=== PATIENT | female | born 1975 | race Caucasian/White ===

== ENCOUNTER 2025-04-25 08:49 | Inpatient (IN) | payer BC ==
[~2025-04-25] VITALS: Ht 167.6 cm; Wt 81.7 kg
[2025-04-25 08:57] VITALS: O2SAT 99
[2025-04-25 09:57] LABS: BASOPHILS % 0.5 % (0.0-2.0); EOSINOPHILS % 0.4 % (0.0-5.0); HEMATOCRIT. 28.9 % (36.0-48.0); HEMOGLOBIN. 9.6 g/dL (12.0-16.0); LYMPHOCYTES % 15.4 % (20.0-50.0); MEAN PLATELET VOLUME 9.1 fl (7.4-10.4); MONOCYTES % 7.5 % (2.0-8.0); NEUTROPHILS % 76.2 % (40.0-76.0); PLATELET 296 x1000/uL (130-400); RED BLOOD CELL COUNT 3.24 mill/uL (4.2-5.4); RED CELL DISTRIBUTION WIDTH 12.8 % (11.6-14.6)
[2025-04-25 10:15] LABS: INR 1.1
[2025-04-25 10:17] LABS: CREATININE 0.8 mg/dL (0.6-1.0); TROPONIN I HIGH SENSITIVITY < 4 ng/L (3.0-34); UREA NITROGEN BLOOD 17 mg/dL (9-23)
[2025-04-25 10:19] LABS: ASPARTATE AMINOTRANSFERASE 15 IU/L (<34); BILIRUBIN DIRECT 0.2 mg/dL (<=3.0); BILIRUBIN TOTAL 0.5 mg/dL (0.1-1.0); PROTEIN TOTAL 7.5 g/dL (6.0-8.3)
[2025-04-25] MEDS: IOHEXOL-350 50 ML BOTTLE ONE (15:18)
[2025-04-25] MEDS ORDERED: HEPARIN 25,000 UNITS in DEXT 5% WATER 245 ML IV SCH (16:00)
[2025-04-25] MEDS: HEPARIN 5000 UNITS/ML VIAL IV ONE (16:50)
[2025-04-25] MEDS: HEPARIN 25,000 UNITS PREMIX 250 ML IV SCH (17:34)
[2025-04-25] MEDS ORDERED: HEPARIN 25,000 UNITS PREMIX 250 ML IV SCH (18:00)
[2025-04-25 18:20] VITALS: BP 152/77; PULSE 77; RESP 20; TEMP 36.2; O2SAT 99
[2025-04-25 19:30] VITALS: BP 152/77; PULSE 77; RESP 20; TEMP 36.1956
[2025-04-25 20:00] VITALS: BP 155/80; PULSE 76; RESP 18; TEMP 36.3; O2SAT 97
[2025-04-25] MEDS ORDERED: IOHEXOL-350 100 ML BOTTLE ONE ×2 (20:50→20:51)
[2025-04-25] MEDS ORDERED: DEXTROSE 50% WATER 50ML SYRINGE IV PRN (22:15)
[2025-04-25] MEDS ORDERED: ONDANSETRON HCL 4MG/2ML INJ IV PRN (22:15)
[2025-04-25] MEDS ORDERED: MORPHINE SULFATE 4 MG/ML INJ (FOR IV/IM USE) IV PRN (22:15)
[2025-04-25] MEDS ORDERED: IPRATROPIUM/ALBUTEROL 0.5-3(2.5)MG/3ML NEB HHN PRN (22:15)
[2025-04-26] VITALS (11 sets, daily range): BP systolic 109–166; BP diastolic 61–81; PULSE 68–84; RESP 12–20; TEMP 36.4–36.6; O2SAT 95–99
[2025-04-26] MEDS ORDERED: HEPARIN BOLUS PRN aPTT <36 IV
[2025-04-26] MEDS ORDERED: LEVO50TA8 PO (00:41)
[2025-04-26] MEDS ORDERED: METF-1149 PO (00:41)
[2025-04-26] MEDS ORDERED: LISI10TA26 PO (00:41)
[2025-04-26] MEDS ORDERED: ROSU40TA MT (00:41)
[2025-04-26] MEDS ORDERED: ROSU40TA PO (00:41)
[2025-04-26 07:08] LABS: CREATINE KINASE MB FRACTION < 0.5 ng/mL (0.5-3.6)
[2025-04-26 07:10] LABS: CREATININE 0.8 mg/dL (0.6-1.0); TRIGLYCERIDE 127 mg/dL (0-150); UREA NITROGEN BLOOD 17 mg/dL (9-23)
[2025-04-26 07:11] LABS: LDL CHOLESTEROL 58 mg/dL (5-100); T4 FREE 1.20 ng/dL (0.89-1.76)
[2025-04-26 07:13] LABS: BASOPHILS % 0.6 % (0.0-2.0); EOSINOPHILS % 2.6 % (0.0-5.0); HEMATOCRIT. 27.9 % (36.0-48.0); HEMOGLOBIN. 9.3 g/dL (12.0-16.0); LYMPHOCYTES % 26.5 % (20.0-50.0); MEAN PLATELET VOLUME 9.9 fl (7.4-10.4); MONOCYTES % 9.6 % (2.0-8.0); NEUTROPHILS % 60.7 % (40.0-76.0); PLATELET 259 x1000/uL (130-400); RED BLOOD CELL COUNT 3.15 mill/uL (4.2-5.4); RED CELL DISTRIBUTION WIDTH 12.8 % (11.6-14.6)
[2025-04-26] MEDS: BLOOD SUGAR DIAGNOSTIC STRIP TEST SCH (07:30)
[2025-04-26] MEDS: INSULIN LISPRO 100 UNITS/ML SUBCUT SCH (08:00)
[2025-04-26 10:01] LABS: TROPONIN I HIGH SENSITIVITY < 4 ng/L (3.0-34)
[2025-04-26 17:25] LABS: TROPONIN I HIGH SENSITIVITY < 4 ng/L (3.0-34)
[2025-04-26 17:26] LABS: CREATINE KINASE MB FRACTION < 0.5 ng/mL (0.5-3.6)
[2025-04-26] MEDS: HEPARIN BOLUS PRN aPTT 37-44 IV (20:36)
[2025-04-27] VITALS (14 sets, daily range): BP systolic 122–141; BP diastolic 60–89; PULSE 65–83; RESP 11–20; TEMP 36.4–37.3; O2SAT 95–98
[2025-04-27] MEDS ORDERED: NALOXONE HCL 0.4MG/ML VIAL IV PRN (21:30)
[2025-04-28] VITALS (21 sets, daily range): BP systolic 99–149; BP diastolic 57–89; PULSE 63–81; RESP 13–26; TEMP 36.7–37.1; O2SAT 96–99
[2025-04-28 07:12] LABS: BASOPHILS % 1.1 % (0.0-2.0); EOSINOPHILS % 4.9 % (0.0-5.0); HEMATOCRIT. 28.7 % (36.0-48.0); HEMOGLOBIN. 9.4 g/dL (12.0-16.0); LYMPHOCYTES % 40.3 % (20.0-50.0); MEAN PLATELET VOLUME 9.9 fl (7.4-10.4); MONOCYTES % 8.3 % (2.0-8.0); NEUTROPHILS % 45.4 % (40.0-76.0); PLATELET 280 x1000/uL (130-400); RED BLOOD CELL COUNT 3.24 mill/uL (4.2-5.4); RED CELL DISTRIBUTION WIDTH 13.1 % (11.6-14.6)
[2025-04-28 07:26] LABS: CREATININE 0.9 mg/dL (0.6-1.0)
[2025-04-28 07:27] LABS: UREA NITROGEN BLOOD 18 mg/dL (9-23)
[2025-04-28] MEDS: APIXABAN 5 MG TABLET PO SCH (15:58)
[2025-05-06] MEDS ORDERED: APIXABAN 5 MG TABLET PO SCH (09:00)
== END 2025-04-28 18:10 | disposition home health service (06) | DRG 176 ==
LOC: ER 08:49 → 6WST 14:45 → EDBEDREQTM 14:57 → EDBEDREQ 14:57 → 5EST 04-26 00:05
PROVIDERS: ADMIT Internal Medicine; ATTEND Internal Medicine
DX: I26.99 Other pulmonary embolism without acute cor pulmonale (principal); R04.2 Hemoptysis; E03.9 Hypothyroidism, unspecified; E11.9 Type 2 diabetes mellitus without complications; I51.9 Heart disease, unspecified; Z79.84 Long term (current) use of oral hypoglycemic drugs; Z98.84 Bariatric surgery status; M25.511 Pain in right shoulder
CPT/HCPCS: 36415; 71045; 71275; 74177; 80048; 80061; 80076; 82550; 82553; 82962; 83036; 83880; 84439; 84443; 84481; 84484; 85025; 85379; 86850; 86900; 93005; 93306; 93970; 99291; A4606; J1644; J1815; Q9967